=== PATIENT | female | born 1995 | race Caucasian/White ===

== ENCOUNTER → 2017-05-07 12:08 | Observation (INO) ==
--- NOTE | 2017-05-07 10:54 | OB/GYN Progress Note ---
Date of Encounter: 05/07/17 Time of Encounter: 10:51 - Assessment and Plan (1) Encounter for suspected premature rupture of amniotic membranes, with rupture of membranes not found Current Visit: Yes Status: Acute Patient felt like she has been leaking fluid for the past 4 days. State that it has been a slow constant leak. Nitrazine negative X 2 No ferning was identified on microscopy No pooling of fluid or bleeding on speculum exam. White discharged noted on exam FHR 145 and reactive UDS Urinalysis Vaginosis panel Continue monitoring (2) 37 weeks gestation of Current Visit: Yes Status: Acute Patient is 37w3d EGA Subjective - Subjective Interval history: Patient is a 21 year old female at 37w3d presents to L&D for concern for loss of fluid and decreased movement this morning. She states that she has had leaking of fluid starting on Saturday. States that it has been a slow leak. Denies any vaginal bleeding or discharge. States that this morning she felt like there was decreased movement but since she has been here in L&D she states that it seems to be moving normally. Denies any contractions at this time. blood type O positive GBS not isolated Hep B Nonreactive HIV nonreactive T pallidum Negative Rubella IgG antibody negative Varicella IgG Antibody Positive N Gonorrhoeae Not detected Chlamydia Not detected Antepartum ROS: new complaints, loss of fluid, no vaginal bleeding, no movement normal (decrease movement this morning but normal now), no contractions Objective - Vital Signs Vital Signs: Intake and Output 05/06/17 05/07/17 05/07/17 23:59 07:59 15:59 Other: Weight 74.1 kg Patient Weight 05/07/17 23:59 Weight 74.1 kg - Exam FHR: auscultation normal, category 1 Auscultation: bilateral: normal Abdomen: Present: normal appearance, soft, gravid, tenderness (Suprapubic) Cervical dilation: 3 per rn hospice Cervix effacement: 70 per rn hospice station: -2 Per Marketing Underwriter Comments: Speculum exam did not show any pooling of fluid or vaginal bleeding. Whitish discharge was noted on exam.
[2017-05-07 10:58] LABS: Bilirubin,Urine Negative (Negative); Blood,Urine Negative (Negative); Clarity,Urine Cloudy (Clear); Color,Urine Dark Yellow (Yellow); Glucose,Urine (UA) Normal (Normal); Ketones,Urine Negative (Negative); Leukocyte Esterase,Urine Moderate (Negative); Nitrite,Urine Negative (Negative); Protein,Urine Trace mg/dL (Neg-Trace); Specific Gravity,Urine 1.026 (1.010-1.025); Urobilinogen,Urine Normal (Normal)
[2017-05-07 11:00] LABS: Bacteria,Urine Few per hpf (None-Few); Hyaline Casts,Urine None Seen per lpf (None-Few); Squamous Epithelial Cell,Urine Many per lpf (None-Few); WBC,Urine 15-30 per hpf (0-3)
[2017-05-07 11:12] LABS: RBC,Urine 0-3 per hpf (0-3); Uric Acid Crystals,Urine Present
[2017-05-07 11:25] LABS: Amphetamine Screen,Urine Negative ng/mL (Cutoff=1000); Barbiturate Screen,Urine Negative ng/mL (Cutoff=200); Benzodiazepines Screen,Urine Negative ng/mL (Cutoff=200); Cannabinoid Screen,Urine Negative ng/mL (Cutoff = 50); Cocaine Screen,Urine Negative ng/mL (Cutoff= 300); Opiate Screen,Urine Negative ng/mL (Cutoff=300); Phencyclidine Screen,Urine Negative ng/mL (Cutoff=25)
[2017-05-07 11:41] LABS: Candida DNA Not Detected (Not Detect); Gardnerella DNA Not Detected (Not Detect); Trichomonas DNA Not Detected (Not Detect)
== END | disposition home or self-care (01) ==
LOC: 1NENULAB
PROVIDERS: ADMIT Student in an Organized Health Care Education/Training Program; ATTEND Student in an Organized Health Care Education/Training Program

== ENCOUNTER 2017-05-20 09:45 | Inpatient (IN) ==
[2017-05-20] MEDS ORDERED: Metoclopramide 10 MG/2 ML VIAL IVP PRN (10:58)
[2017-05-20] MEDS ORDERED: Famotidine 20 MG/2 ML VIAL IVP PRN (10:58)
[2017-05-20] MEDS ORDERED: *HR* Nalbuphine 20 MG/ML AMPUL IVP PRN (10:58)
[2017-05-20] MEDS ORDERED: Ondansetron 4 MG/2 ML VIAL IVP PRN (10:58)
[2017-05-20] MEDS ORDERED: miSOPROStol 25 MCG TABLET VG PRN (10:58)
[2017-05-20] MEDS ORDERED: Ringers Solution, Lactated 1,000 ML IVC SCH (11:00)
[2017-05-20 11:12] LABS: Basophils # 0.1 K/mcL (0.0-0.2); Basophils % 0.4 %; Eosinophils # 0.2 K/mcL (0.0-0.6); Hematocrit 36.1 % (35.3-44.9); Hemoglobin 12.1 g/dL (11.5-15.4); Immature Granulocytes % 1.8 % (0-4); Lymphocytes # 2.2 K/mcL (0.6-4.6); Lymphocytes % 15.2 %; Mean Corpuscular HGB Conc 33.5 g/dL (31.6-35.5); Mean Corpuscular Hemoglobin 29.5 pg (28.0-33.3); Mean Platelet Volume 11.8 fL (9.4-12.4); Monocytes # 1.3 K/mcL (0.0-1.3); Monocytes % 8.6 %; Neutrophils # 10.6 K/mcL (1.6-8.9); Platelet Count 225 K/mcL (140-400); Red Cell Distribution Width 13.9 % (11.5-14.5)
[2017-05-20 11:29] LABS: Amphetamine Screen,Urine Negative ng/mL (Cutoff=1000); Barbiturate Screen,Urine Negative ng/mL (Cutoff=200); Benzodiazepines Screen,Urine Negative ng/mL (Cutoff=200); Cannabinoid Screen,Urine Negative ng/mL (Cutoff = 50); Cocaine Screen,Urine Negative ng/mL (Cutoff= 300); Opiate Screen,Urine Negative ng/mL (Cutoff=300); Phencyclidine Screen,Urine Negative ng/mL (Cutoff=25)
--- NOTE | 2017-05-20 11:31 | OB/GYN History & Physical ---
Date of Encounter: 05/20/17 Time of Encounter: 11:28 Assessment and Plan (1) 39 weeks gestation of Current visit: Yes Status: Acute Pt presenting for IOL at 39 weeks gestation. Morrell placed in cervix with 60ml sterile water. Pt tolerated well. Cytotec 25mcg administered vaginally. Epidural when requested. Anticipate . (2) Tobacco use affecting in third trimester, antepartum Current visit: Yes Status: Acute History of Present Illness Chief complaint: IOL HPI: Ms. Weaver is a 21 year old female presenting at 39w2d for elective IOL. This has been complicated by tobacco use 1/2 PPD. EFW at 36 weeks was 61%tile. No other complications. No complaints today. Good FM. 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) Psychiatric history: no psych history - Past Surgical History Surgical History: orthopedic, other (foot and ankle surgery) - Social History Smoking Status: Current every day smoker Packs per day: .5 Smokeless Tobacco Status: No Alcohol use: none Drug use: none - Family History Mother Adopted: No Living Status: Still Living Hx Family Cardiac Disorders: No Hx Family Respiratory Disorders: No Hx Family Cancer: No Hx Family GI Disorders: No Hx Family Genitourinary Disorders: No Hx Family Endocrine Disorder: No Hx Family Musculoskeletal Disorders: No Hx Family Neuromuscular Disorders: No Hx Family Neurologic Disorders: No Hx Family HEENT Disorders: No Hx Family Autoimmune Disorders: No Hx Family Reproductive Disorders: No Hx Family Psychosocial Disorders: No Hx Family Medical Disorders: No Obstetrical History - Pregnancies : 2 Para: 1 Term: 1 : 0 Ab's: 0 Livin Medications and Allergies Formula Tablet 1 tab PO DAILY 02/12/17 [History] 3 Allergy/AdvReac Type Severity Reaction Status Date / Time Oxycodone Allergy Swelling Verified 10/02/16 16:38 of Lip/Tongue/Throat Review of System OB All systems PM: reviewed and no additional remarkable complaints except as stated Exam - Constitutional Constitutional: well developed, well nourished, no acute distress - HEENT HEENT: Mucus Membranes Moist - Lungs Respiratory exam: CTAB - Cardiovascular Cardiovascular exam: RRR, +S1, +S2 - Abdomen Abdomen: Present: gravid, non tender - Extremities Extremities exam: normal inspection - Vulva Vulva: bilateral: normal - Cervix Dilation: 2 Effacement: 80 Station: -1 - Uterus Uterus exam: Present: normal size - Anus/Rectum Anus/Rectum: Present: normal perianal skin Results Result Diagrams: 05/20/17 10:35 Abnormal lab results WBC 14.5 K/mcL (4.3-11.1) H 05/20/17 10:35 Neutrophils # 10.6 K/mcL (1.6-8.9) H 05/20/17 10:35 All other labs normal. - VTE Reasons for not Prescribing Prophylaxis: Treatment not Indicated - Low risk for VTE
--- NOTE | 2017-05-20 12:48 | OB Labor Progress Note ---
Date of Encounter: 05/20/17 Time of Encounter: 12:20 Labor Progress Note - Subjective Subjective: Pt reports cramping with contractions. She declines intervention at this time. - Cervix Cervix: 5-6/80/-1 - Heart Tones Heart Tones: Category I - [place]: Q1-2 minutes. - Interventions Interventions: Bejarano out with 1 gentle tug. Pt reports pain is improved after bejarano is out. - Plan Plan: Pt may have epidural when desired. Will AROM once pt is comfortable. Anticipate .
[2017-05-20] MEDS ORDERED: Epidural Premix (fent/bupiv) 110 ML EP ONE (13:06)
[2017-05-20] MEDS ORDERED: Epidural Premix (fent/bupiv) 110 ML EP SCH (13:15)
--- NOTE | 2017-05-20 13:51 | Anesthesia Evaluation PreOp ---
Date of Encounter: 05/20/17 Time of Encounter: 13:00 - Past History Planned Operation: edinson Cardiac History: Denies any Significant Hx Pulmonary History: Denies Any Significant HX SPECIAL EDUCATION PROFESSOR History: Denies Any Significant HX Other Medical History: Denies Any Significant HX Anesthesia History: No Prior Anesthetic Complications : Yes Test: Positive Alcohol Use: none Drug use: none, unknown Medications and Allergies Formula Tablet 1 tab PO DAILY 02/12/17 [History] 3 Allergy/AdvReac Type Severity Reaction Status Date / Time Oxycodone Allergy Swelling Verified 10/02/16 16:38 of Lip/Tongue/Throat - Meds/Allergy Pre-op Review Medications Reviewed: Yes Allergies Reviewed: Yes Beta Blockers on Current Med List: No Anesthesia Results - Labs 05/20/17 10:35 Anesthesia Exam 114/68 102, 16 Height: 67 Weight: 74 NPO (# of Hours): mn Pain Scale: 8 - HEENT Pupil (Motor): Pupils equal Mallampati: II Teeth: Normal Oral Opening: Greater than 3 - SPECIAL EDUCATION PROFESSOR LOC: Oriented SPECIAL EDUCATION PROFESSOR Motor: Normal RUE, Normal LUE, Normal RLE, Normal LLE, Normal Face SPECIAL EDUCATION PROFESSOR Sensory: Normal: RUE, LUE, RLE, LLE, Face - Cardiac Rhythm: Regular JVD: No Carotid Bruit: No - Pulmonary Breath Sounds: bilateral Clear Respiratory Effort: Symmetrical Anesthesia Assess/Plan ASA Score: 1 Modified [place] Scale for Level of Consciousness: Cooperative, oriented, and tranquil Anesthetic Plan: Regional Autologous Blood: No Monitoring Plan: Standard Monitors
--- NOTE | 2017-05-20 13:53 | Anesthesia Procedures ---
Date of Encounter: 05/20/17 Time of Encounter: 13:10 Procedures: Anesthesia - Epidural/Spinal Patient ID/Chart reviewed: Yes Patient examined: Yes OB Eval: Gestational age: 39.2 OB Eval: : 2 OB Eval: Hx Para: 1 OB Eval: Contractions: Non-stressed pattern Consent Obtained: Yes Site Prep: Aseptic Technique, Sterile prep and drape, Povidone-Iodine 1% Patient position: upright Amount of Local Anesthetic used: 3 Touhy Needle Gauge: 18 Touhy Needle Depth (cm): 6 Catheter Depth at Skin (cm): 9 Test Dose (1.5% Lido + Epi): Volume given (mls): 3 Test Dose Result: Negative Loading Dose Administered: Thru Catheter Infusion Rate (mls/hr): [address]: Tegaderm, Tape Interspace Used: L4-L5 Loss of Resistance (JENNI): Yes Blood: No CSF: No Paresthesia: No Procedure: no anesthesia complications, MAE placed with ease, states pain with contractions down from 8 to 0 VSS throughout FHT stable throughout see nursing notes
[2017-05-20] MEDS ORDERED: Famotidine 20 MG/2 ML VIAL IVP ONE (14:14)
--- NOTE | 2017-05-20 14:53 | OB Labor Progress Note ---
Date of Encounter: 05/20/17 Time of Encounter: 14:52 Labor Progress Note - Subjective Subjective: Pt comfortable with epidural - Cervix Cervix: 6-7/90/-1 - Heart Tones Heart Tones: category I - [place]: 1-2 minutes - Interventions Interventions: AROM for moderate amount clear fluid - Plan Plan: COntinue to monitor. Anticipate .
[2017-05-20] MEDS ORDERED: GuaiFENesin Liq 200 MG/10 ML UDC PO PRN (16:01)
--- NOTE | 2017-05-20 17:14 | OB/GYN Procedure Note ---
Delivery - Delivery Date: 05/20/17 Provider: Tony Pablo Intrapartum events: none Delivery induction: AROM, bejarano Delivery augmentation: rupture of membranes Delivery monitor: external FHT, external uterine Anesthesia: epidural Estimated Blood Loss: 200 - (s) A Delivery Date: 05/20/17 Delivery Time: 16:16 Presentation: vertex Position: DENIZ Gender: Female Viability: Viable Pounds: 6 Ounces: 4 Weight Gram: 2.845 kg at 1 minute: 8 at 5 mins: 9 Shoulder Dystocia: not encountered Specimens collected: cord blood Placenta: spontaneous Cord: nuchal cord, nuchal reduced - Repair Laceration Description: Periurethral (left) - Complications Delivery complications: none Delivery comments: Patient is a 21-year-old 2 para 1 at 39-2/7 weeks who presents to labor and delivery for induction labor secondary with favorable cervix. Patient received Bejarano catheter and Cytotec Bejarano fell out within an hour she was 5-6 cm. Epidural was placed she was artificially ruptured large amounts of clear fluid noted. Patient progressed probably became complete patient pushed approximately 3-4 times delivering a viable female infant in left occiput anterior presentation at 1616. There was a nuchal cord 1 loose and reduced, there was no meconium, infant was bulb suctioned the abdomen, infant weight was 6 lbs. 4 oz. Placenta was then delivered spontaneously with three-vessel cord, taker off hemp fiber Dr. Pablo, ex assistant/program director Jerald Casarez [id number], anesthesia epidural, estimated blood loss 200 mL. Patient had a left periurethral laceration repaired with 4-0 Vicryl in usual fashion cervix vagina was visualized intact. Patient tolerated the delivery well she will be observed one hour before being taken to the floor - Disposition Mom disposition: stable in LDR disposition: stable in LDR
[2017-05-20] MEDS ORDERED: Acetaminophen 325 MG TABLET PO PRN (18:11)
[2017-05-20] MEDS ORDERED: Measles/Mumps/Rubella Vacc 0.5 ML VIAL SQ PRN (18:11)
[2017-05-20] MEDS ORDERED: Oxytocin 20 units/ LR 1000 mL 20 UNIT/1,000 ML BAG IVC SCH (18:11)
[2017-05-20] MEDS: Ibuprofen 600 MG TABLET PO PRN (20:07)
[2017-05-21 04:39] LABS: Basophils # 0.1 K/mcL (0.0-0.2); Basophils % 0.5 %; Eosinophils # 0.2 K/mcL (0.0-0.6); Eosinophils % 1.1 %; Hemoglobin 10.8 g/dL (11.5-15.4); Immature Granulocytes % 2.1 % (0-4); Lymphocytes # 3.3 K/mcL (0.6-4.6); Lymphocytes % 20.7 %; Mean Corpuscular HGB Conc 32.7 g/dL (31.6-35.5); Mean Corpuscular Hemoglobin 29.3 pg (28.0-33.3); Mean Corpuscular Volume 89.7 fL (83.0-100.0); Mean Platelet Volume 11.9 fL (9.4-12.4); Monocytes # 1.7 K/mcL (0.0-1.3); Monocytes % 10.7 %; Neutrophils # 10.4 K/mcL (1.6-8.9); Platelet Count 168 K/mcL (140-400); Red Blood Count 3.68 M/mcL (3.82-4.97); Red Cell Distribution Width 13.8 % (11.5-14.5); Segmented Neutrophils % 64.9 %
[2017-05-21 07:53] VITALS: BP 123/79
[2017-05-21] MEDS: Ibuprofen 600 MG TABLET PO PRN (07:53)
[2017-05-21] MEDS ORDERED: Prenatal Vit/FA 1 EACH TABLET PO SCH (09:00)
--- NOTE | 2017-05-21 09:52 | Discharge Summary ---
Date of Encounter: 05/21/17 Time of Encounter: 09:48 - Discharge Diagnosis (1) Status post vaginal delivery Priority: Primary Status: Acute Comments: PPD#1 s/p Ambulating well, tolerating po intake, voiding well Pt can be discharged home (2) 39 weeks gestation of Priority: Secondary Status: Acute (3) Rubella nonimmune status, delivered, current hospitalization Priority: Secondary Status: Acute Comments: Give MMR prior to discharge - Discharge Medications Prescriptions: Ibuprofen [Motrin] 600 mg PO Q6HR PRN #60 tablet PRN Reason: Cramping Docusate [Colace] 100 mg PO BID #60 capsule Ferrous Sulfate 325 mg PO DAILY #30 tablet Home Medications: Formula Tablet 1 tab PO DAILY 02/12/17 [History] Docusate [Colace] 100 mg PO BID #60 capsule 05/21/17 [Rx] Ferrous Sulfate 325 mg PO DAILY #30 tablet 05/21/17 [Rx] Ibuprofen [Motrin] 600 mg PO Q6HR PRN #60 tablet 05/21/17 [Rx] Allergies/Adverse Reactions: 3 Allergy/AdvReac Type Severity Reaction Status Date / Time Oxycodone Allergy Swelling Verified 10/02/16 16:38 of Lip/Tongue/Throat Data Procedures and tests throughout hospitalization: Laboratory Tests 05/20/17 05/20/17 05/21/17 10:35 11:05 04:13 WBC 14.5 H 16.0 H RBC 4.10 3.68 L Hgb 12.1 10.8 L Hct 36.1 33.0 L MCV 88.0 89.7 MCH 29.5 29.3 MCHC 33.5 32.7 RDW 13.9 13.8 Plt Count 225 168 MPV 11.8 11.9 Immature Gran % 1.8 2.1 Seg Neutrophils % 73.0 64.9 Lymphocytes % 15.2 20.7 Monocytes % 8.6 10.7 Eosinophils % 1.0 1.1 Basophils % 0.4 0.5 Neutrophils # 10.6 H 10.4 H Lymphocytes # 2.2 3.3 Monocytes # 1.3 1.7 H Eosinophils # 0.2 0.2 Basophils # 0.1 0.1 Urine Opiates Screen Negative Ur Barbiturates Screen Negative Ur Phencyclidine Scrn Negative Ur Amphetamines Screen Negative U Benzodiazepines Scrn Negative Urine Cocaine Screen Negative U Marijuana (THC) Screen Negative Labs on day of discharge: Labs from last 24 hours 05/21/17 05/20/17 05/20/17 04:13 11:05 10:35 WBC 16.0 H 14.5 H RBC 3.68 L 4.10 Hgb 10.8 L 12.1 Hct 33.0 L 36.1 MCV 89.7 88.0 MCH 29.3 29.5 MCHC 32.7 33.5 RDW 13.8 13.9 Plt Count 168 225 MPV 11.9 11.8 Immature Gran % 2.1 1.8 Seg Neutrophils % 64.9 73.0 Lymphocytes % 20.7 15.2 Monocytes % 10.7 8.6 Eosinophils % 1.1 1.0 Basophils % 0.5 0.4 Neutrophils # 10.4 H 10.6 H Lymphocytes # 3.3 2.2 Monocytes # 1.7 H 1.3 Eosinophils # 0.2 0.2 Basophils # 0.1 0.1 Urine Opiates Screen Negative Ur Barbiturates Screen Negative Ur Phencyclidine Scrn Negative Ur Amphetamines Screen Negative U Benzodiazepines Scrn Negative Urine Cocaine Screen Negative U Marijuana (THC) Screen Negative Date of admission: 05/20/17 09:45 Primary care physician: Jud Arriaga CNP Consults: 05/20/17 18:11 Consult to Setter Off [CONS] Routine Comment: Vaginal delivery, consult needed Discharging clinician: Tapan Rae Anticipated date of discharge: 05/21/17 - Patient Status Disposition: Home, Self-Care Condition: Good Functional capacity at discharge: independent ambulation Overall status at discharge: patient is progressing back to baseline - Discharge Instructions Follow Up With: Jud Arriaga CNP [Primary Care Provider] - Tony Pablo DO [Partnered Physician] - Additional Instructions: Take medications as prescribed Feed your baby every 2-3 hours Follow-up with OB in 6 weeks - Diet and Activity Activity: increase activity as tolerated Diet: advance to your usual diet Hospital Course Reason for admission: induction of labor Delivery: Episiotomy: none Laceration: other (left periurethral) Other procedures: none complications: none Discharge diagnosis: IUP at term delivered [place] baby: female Hospital course: - Delivery Date: 05/20/17 Provider: Tony Pablo Intrapartum events: none Delivery induction: AROM, bejarano Delivery augmentation: rupture of membranes Delivery monitor: external FHT, external uterine Anesthesia: epidural Estimated Blood Loss: 200 - (s) A Infant Delivery Date: 05/20/17 Infant Delivery Time: 16:16 Presentation: vertex Position: DENIZ Gender: Female Viability: Viable Pounds: 6 Ounces: 4 Weight Gram: 2.845 kg at 1 minute: 8 at 5 mins: 9 Shoulder Dystocia: not encountered Specimens collected: cord blood Placenta: spontaneous Cord: nuchal cord, nuchal reduced - Repair Laceration Description: Periurethral (left) - Complications Delivery complications: none Delivery comments: Pt PPD#1 s/p and doing well. Pain controlled and meeting milestones. Can be discharged home. Time Attestation: Total time spent providing and/or coordinating discharge services: Time Spent: Less than 30 minutes Exam - Constitutional Vitals: Temp Pulse Resp BP Pulse Ox 97.6 F 96 16 123/79 98 05/21/17 07:20 05/21/17 07:20 05/21/17 07:20 05/21/17 07:20 05/21/17 04:05 General appearance IM: A&O X 3, no acute distress - Respiratory Respiratory exam: Present: CTAB - Cardiovascular Cardiovascular exam IM: Present: RRR, +S1, +S2 - GI/Abdominal GI/Abdominal exam IM: normal bowel sounds, soft, no peritoneal signs - Uterine Tone: Firm Uterus Position: 2 Fingers Below Umbilicus - Extremities Exam Extremities exam IM: Present: normal capillary refill, normal inspection - Neurological Exam Neurological exam: alert, no focal deficits - Psychiatric Additional comments: Reports mood is "ok" - Attending Attestation I examined this patient and my medical decision-making was reviewed with the Resident Physician. I agree with the documented findings, disposition and treatment plan as described. Colton Anthony CNM
== END 2017-05-21 16:50 | disposition home or self-care (01) | DRG 775 ==
LOC: 1NENULAB 09:45 → 1NENUOBS 17:59
PROVIDERS: ADMIT Obstetrics & Gynecology; ATTEND Obstetrics & Gynecology

== ENCOUNTER → 2021-08-30 20:25 | Observation (INO) ==
[2021-08-30 20:12] LABS: Amorphous Sediment,Urine Few per hpf (None-Few); Bacteria,Urine Few per hpf (None-Few); Bilirubin,Urine Negative (Negative); Blood,Urine Negative (Negative); Calcium Oxalate Crystals,Urine Present per hpf; Clarity,Urine Turbid (Clear); Color,Urine Yellow (Yellow); Glucose,Urine (UA) Normal (Normal); Ketones,Urine Negative (Negative); Leukocyte Esterase,Urine Small (Negative); Mucus,Urine Few per lpf (None-Few); Nitrite,Urine Negative (Negative); Protein,Urine 30 mg/dL (Neg-Trace); RBC,Urine 0-3 per hpf (0-3); Specific Gravity,Urine 1.019 (1.010-1.025); Squamous Epithelial Cell,Urine Many per hpf (None-Few); Urobilinogen,Urine Normal (Normal); WBC,Urine 0-3 per hpf (0-3)
== END | disposition home or self-care (01) ==
LOC: 1NENULAB
PROVIDERS: ADMIT Advanced Practice Midwife; ATTEND Advanced Practice Midwife

== ENCOUNTER → 2021-09-11 19:39 | Observation (INO) ==
[2021-09-10 23:42] LABS: Basophils # 0.1 K/mcL (0.0-0.2); Basophils % 0.6 %; Eosinophils # 0.1 K/mcL (0.0-0.6); Eosinophils % 0.7 %; Hemoglobin 11.7 g/dL (11.5-15.4); Immature Granulocytes % 2.1 % (0-4); Lymphocytes # 2.2 K/mcL (0.6-4.6); Lymphocytes % 19.8 %; Mean Corpuscular HGB Conc 33.4 g/dL (31.6-35.5); Mean Corpuscular Hemoglobin 29.8 pg (28.0-33.3); Mean Corpuscular Volume 89.1 fL (83.0-100.0); Mean Platelet Volume 11.9 fL (9.4-12.4); Monocytes % 8.7 %; Neutrophils # 7.6 K/mcL (1.6-8.9); Platelet Count 158 K/mcL (140-400); Red Blood Count 3.93 M/mcL (3.82-4.97); Red Cell Distribution Width 13.1 % (11.5-14.5); Segmented Neutrophils % 68.1 %; White Blood Count 11.2 K/mcL (4.3-11.1)
[2021-09-10 23:56] LABS: INR 0.9; Prothrombin Time 10.3 Seconds (9.4-12.1)
[2021-09-10 23:58] LABS: Activated Partial Thrombo Time 25.2 Seconds (26.0-36.0)
== END | disposition home or self-care (01) ==
LOC: 1NENULAB
PROVIDERS: ADMIT Advanced Practice Midwife; ATTEND Advanced Practice Midwife

== ENCOUNTER 2021-09-27 09:50 | Inpatient (IN) ==
[2021-09-27] MEDS ORDERED: Naloxone 0.4 MG/ML INJ IVP PRN (10:07)
[2021-09-27] MEDS ORDERED: Azithromycin 500 MG in 0.9 % Sodium Chloride 250 ML IVPB PRN (10:07)
[2021-09-27] MEDS ORDERED: Ondansetron 4 MG/2 ML VIAL IVP PRN (10:07)
[2021-09-27] MEDS ORDERED: Famotidine 20 MG/2 ML VIAL IVP PRN (10:07)
[2021-09-27] MEDS ORDERED: Metoclopramide 10 MG/2 ML VIAL IVP PRN (10:07)
[2021-09-27] MEDS ORDERED: miSOPROStoL 25 MCG TABLET VG ONE (10:12)
[2021-09-27] MEDS ORDERED: Oxytocin 30 UNIT/503 ML BAG IVC SCH ×2 (10:15→21:13)
[2021-09-27] MEDS ORDERED: Ringers Solution, Lactated 1,000 ML ONE (10:57)
[2021-09-27] MEDS ORDERED: EPHEDrine 50 MG/ML VIAL IVP PRN (10:59)
[2021-09-27] MEDS ORDERED: Epidural Premix (fent/bupiv) 110 ML EP SCH (11:00)
[2021-09-27] MEDS ORDERED: Ringers Solution, Lactated 1,000 ML IVC SCH (11:15)
[2021-09-27 11:43] LABS: Influenza A PCR Negative (Negative); Influenza B PCR Negative (Negative); Resp. Syncytial Virus PCR Negative (Negative); SARS-CoV-2 by PCR (In House) Negative (Negative)
[2021-09-27 12:14] LABS: Basophils # 0.1 K/mcL (0.0-0.2); Basophils % 0.4 %; Eosinophils # 0.1 K/mcL (0.0-0.6); Eosinophils % 0.5 %; Hematocrit 36.4 % (35.3-44.9); Hemoglobin 12.1 g/dL (11.5-15.4); Immature Granulocytes % 2.1 % (0-4); Lymphocytes # 2.1 K/mcL (0.6-4.6); Mean Corpuscular HGB Conc 33.2 g/dL (31.6-35.5); Mean Corpuscular Hemoglobin 29.7 pg (28.0-33.3); Mean Corpuscular Volume 89.4 fL (83.0-100.0); Mean Platelet Volume 12.6 fL (9.4-12.4); Monocytes # 1.1 K/mcL (0.0-1.3); Monocytes % 8.8 %; Neutrophils # 8.6 K/mcL (1.6-8.9); Platelet Count 172 K/mcL (140-400); Red Blood Count 4.07 M/mcL (3.82-4.97); Red Cell Distribution Width 13.4 % (11.5-14.5); Segmented Neutrophils % 71.2 %; White Blood Count 12.1 K/mcL (4.3-11.1)
[2021-09-27 12:56] LABS: Amphetamine Screen,Urine Negative ng/mL (Cutoff=1000); Barbiturate Screen,Urine Negative ng/mL (Cutoff=200); Benzodiazepines Screen,Urine Negative ng/mL (Cutoff=200); Cannabinoid Screen,Urine Negative ng/mL (Cutoff = 50); Cocaine Screen,Urine Negative ng/mL (Cutoff= 300); Opiate Screen,Urine Negative ng/mL (Cutoff=300); Phencyclidine Screen,Urine Negative ng/mL (Cutoff=25)
[2021-09-27] MEDS ORDERED: *HR* Ropivacaine/PF 0.5% 20 ML VIAL ONE (16:27)
[2021-09-27] MEDS ORDERED: Ropivacaine/PF 0.2% 20 ML VIAL ONE (16:27)
[2021-09-27] MEDS ORDERED: Mag Hydrox/Al Hydrox/Simeth 30 ML UDC PO PRN (16:38)
[2021-09-27] MEDS ORDERED: Measles/Mumps/Rubella Vacc 0.5 ML VIAL SQ PRN (21:13)
[2021-09-27] MEDS ORDERED: Lanolin 7 G OINT...G. TP PRN (21:13)
[2021-09-27] MEDS ORDERED: Benzocaine/Menthol 56 GM AEROSOL SPRAY TP PRN (21:13)
[2021-09-27] MEDS ORDERED: Ondansetron ODT 4 MG TAB.RAPDIS SL PRN (21:13)
[2021-09-27] MEDS: Ibuprofen 600 MG TABLET PO SCH (21:30)
[2021-09-27] MEDS: Acetaminophen 325 MG TABLET PO SCH (21:31)
[2021-09-28 03:29] VITALS: O2SAT 98
[2021-09-28 03:52] LABS: Basophils # 0.1 K/mcL (0.0-0.2); Basophils % 0.4 %; Eosinophils # 0.1 K/mcL (0.0-0.6); Eosinophils % 0.5 %; Hematocrit 34.8 % (35.3-44.9); Hemoglobin 11.6 g/dL (11.5-15.4); Immature Granulocytes % 1.3 % (0-4); Lymphocytes # 2.4 K/mcL (0.6-4.6); Lymphocytes % 18.4 %; Mean Corpuscular HGB Conc 33.3 g/dL (31.6-35.5); Mean Corpuscular Hemoglobin 29.8 pg (28.0-33.3); Mean Corpuscular Volume 89.5 fL (83.0-100.0); Mean Platelet Volume 12.3 fL (9.4-12.4); Monocytes # 1.4 K/mcL (0.0-1.3); Monocytes % 10.9 %; Platelet Count 155 K/mcL (140-400); Red Blood Count 3.89 M/mcL (3.82-4.97); Red Cell Distribution Width 13.3 % (11.5-14.5); Segmented Neutrophils % 68.5 %; White Blood Count 13.1 K/mcL (4.3-11.1)
[2021-09-28] MEDS: Acetaminophen 325 MG TABLET PO SCH ×2 (07:51→13:42)
[2021-09-28] MEDS: Ibuprofen 600 MG TABLET PO SCH ×2 (07:51→13:41)
[2021-09-28 08:09] VITALS: PULSE 70
[2021-09-28 08:10] VITALS: BP 109/71; TEMP 98.4
[2021-09-28] MEDS ORDERED: Prenatal Vit/FA 1 EACH TABLET PO SCH (09:00)
== END 2021-09-28 18:42 | disposition home or self-care (01) | DRG 560 ==
LOC: 1NENULAB 09:50 → 1NENUOBS 21:55
PROVIDERS: ADMIT Obstetrics & Gynecology; ATTEND Obstetrics & Gynecology